=== PATIENT | male | born 1975 | race American Indian/Alaskan Native ===

== ENCOUNTER 2022-07-19 01:40 | Inpatient (IN) | payer SELFPAY ==
--- NOTE | 2022-07-19 02:18 | Emergency Department Report ---
ED General Adult HPI - General Chief complaint: Dyspnea/Respdistress Stated complaint: SOB/SWELLING Time Seen by Provider: 07/19/22 02:17 Source: patient, EMS ( EMS documentation not available at time of chart dictation ), RN notes reviewed Mode of arrival: Stretcher Limitations: Physical Limitation - History of Present Illness Initial comments: The patient was evaluated in the emergency department for symptoms described in the history of present illness. He/she was evaluated in the context of the global COVID-19 pandemic, which necessitated consideration that the patient might be at risk for infection with the virus that causes COVID-19. Instit utional protocols and algorithms that pertain to the evaluation of patients at risk for COVID-19 are in a state of rapid change based on information released by regulatory bodies including the CDC and federal and state organizations. These policies and algorithms were followed during the patient's care in the emergency department. Please note that these policies, procedures and recommendations changed on a rapid basis. This patient is a 46-year-old gentleman with a history of congestive heart failure, unknown ejection fraction, morbid obesity, possible hypertension, who reports a possible history of upper extremity DVT, and believes he is currently on Xarelto or Eliquis, who presents to the department today with complaint of painless lower extremity swelling, and difficulty walking. Patient denies significant chest pain. Patient denies hematemesis and bright red blood per rectum. The patient believes that he is COVID-19 vaccinated. He believes that he has actually lost a little bit of weight, but he also reports that he feels that his lower extremities are markedly swollen, and he has difficulty walking. He relocated to [place] from [place] in December. He reports that he gets his prescription sent to him from [facility], and is mostly compliant with his medications, although he reports intermittent compliance with diuretics and possible antihypertensives. He is fairly certain that he is compliant with his anticoagulants. His symptoms of lower extremity swelling him going on for the past 3 to 4 weeks, and are gradually getting worse -: week(s), month(s) Location: left, right, lower extremity Quality: aching Consistency: constant Improves with: rest Worsens with: movement - Related Data Allergies Allergy/AdvReac Type Severity Reaction Status Date / Time No Known Allergies Allergy Unverified 07/19/22 02:13 ED Review of Systems ROS: Stated complaint: SOB/SWELLING Other details as noted in HPI Constitutional: denies: fever Eyes: denies: eye discharge ENT: congestion Respiratory: shortness of breath Cardiovascular: edema. denies: chest pain Gastrointestinal: denies: nausea, vomiting, hematemesis, melena, hematochezia Genitourinary: denies: dysuria Musculoskeletal: arthralgia, myalgia Neurological: denies: weakness Psychiatric: anxiety Hematological/Lymphatic: denies: easy bleeding ED Past Medical Hx - Past Medical History Previous Medical History?: Yes Hx Hypertension: Yes Hx Congestive Heart Failure: Yes Additional medical history: Morbid Obesity - Surgical History Past Surgical History?: No - Social History Smoking Status: Never Smoker Substance Use Type: None ED Physical Exam - General Limitations: No Limitations General appearance: alert, anxious, obese - Head Head exam: Present: atraumatic, normocephalic - Eye Eye exam: Present: normal appearance, EOMI. Absent: nystagmus - ENT ENT exam: Present: normal exam, normal orophraynx, mucous membranes moist, normal external ear exam - Neck Neck exam: Present: normal inspection, full ROM. Absent: tenderness, meningismus - Respiratory Respiratory exam: Present: respiratory distress, decreased breath sounds. Absent: rhonchi, stridor - Cardiovascular Cardiovascular Exam: Present: normal rhythm, tachycardia. Absent: systolic murmur, diastolic murmur, rubs, gallop - GI/Abdominal GI/Abdominal exam: Present: soft, tenderness (Abdominal wall anasarca is estella reciated). Absent: distended, guarding, rebound, rigid - Rectal Rectal exam: Present: deferred - Extremities Exam Extremities exam: Present: full ROM (Bilateral upper extremities. Bilateral ankles), pedal edema (4+ edema noted in the bilateral lower extremities.), other (2+ pulses noted in the bilateral upper and lower extremities. There is no long bony tenderness. The muscular compartments are soft). Absent: normal inspection (Chronic appearing wound noted to the left anterior distal tibial region) - Back Exam Back exam: Present: normal inspection. Absent: tenderness, CVA tenderness (R), CVA tenderness (L), paraspinal tenderness, vertebral tenderness - Neurological Exam Neurological exam: Present: alert, oriented X3, other (There is no facial droop. The tongue is midline. EOMI. 5 out of 5 strength in 4 extremities. Sensation is intact to light touch in 4 extremities). Absent: motor sensory deficit - Psychiatric Psychiatric exam: Present: normal affect, normal mood - Skin Skin exam: Present: warm, dry, intact, normal color. Absent: rash ED Course Vital Signs 07/19/22 07/19/22 01:41 02:30 Temperature 98.8 F 97.5 F L Pulse Rate 120 H 124 H Respiratory 22 35 H Rate Blood Pressure 150/112 Blood Pressure 162/115 [Left] O2 Sat by Pulse 97 95 Oximetry - Reevaluation(s) Reevaluation #1: 07/19/22 04:31 Differential diagnosis, include but not limited to: Decompensated congestive heart failure, pulmonary hypertension, obstructive sleep apnea, volume overload, congestive hepatopathy, type II DC Assessment and plan: 46-year-old gentleman with physical and radiographic evidence of decompensated congestive heart failure, with probable congestive hepatopathy, and a type II troponin leak. X-ray of the chest suggest congestive heart failure. He is taking systemic anticoagulation. Lower extremity DVT study ordered. I do not have high suspicion for DVT or PE at this time. High-dose Lasix is ordered. Have recommended admission to the medical service for decompensated congestive heart failure. I will defer to the inpatient team to follow-up on lower extremity DVT study. I discussed this plan of care with the patient. He articulated understanding. All questions answered. 07/19/22 05:02 Dr Cheema to admit to [facility] ED Medical Decision Making - Lab Data Result diagrams: 07/19/22 02:51 07/19/22 02:51 Vital Signs 07/19/22 07/19/22 01:41 02:30 Temperature 98.8 F 97.5 F L Pulse Rate 120 H 124 H Respiratory 22 35 H Rate Blood Pressure 150/112 Blood Pressure 162/115 [Left] O2 Sat by Pulse 97 95 Oximetry Lab Results 07/19/22 07/19/22 07/19/22 Range/Units 02:51 02:51 02:51 WBC 6.8 (4.5-11.0) K/mm3 RBC 5.84 H (3.65-5.03) M/mm3 Hgb 14.3 (11.8-15.2) gm/dl Hct 45.5 (35.5-45.6) % MCV 78 L (84-94) fl MCH 25 L (28-32) pg MCHC 31 L (32-34) % RDW 18.2 H (13.2-15.2) % Plt Count 284 (140-440) K/mm3 Lymph % (Auto) 17.6 (13.4-35.0) % [place] % (Auto) 11.4 H (0.0-7.3) % Eos % (Auto) 0.3 (0.0-4.3) % Baso % (Auto) 0.8 (0.0-1.8) % Lymph # (Auto) 1.2 (1.2-5.4) K/mm3 [place] # (Auto) 0.8 (0.0-0.8) K/mm3 Eos # (Auto) 0.0 (0.0-0.4) K/mm3 Baso # (Auto) 0.1 (0.0-0.1) K/mm3 Seg Neutrophils % 69.9 (40.0-70.0) % Seg Neutrophils # 4.8 (1.8-7.7) K/mm3 PT 16.8 H (12.2-14.9) Sec. INR 1.22 H (0.87-1.13) APTT 28.6 (24.2-36.6) Sec. Sodium 136 L (137-145) mmol/L Potassium 5.1 H (3.6-5.0) mmol/L Chloride 104.7 (98-107) mmol/L Carbon Dioxide 14 L (22-30) mmol/L Anion Gap 22 mmol/L BUN 35 H (9-20) mg/dL Creatinine 1.4 H (0.8-1.3) mg/dL Estimated GFR > 60 ml/min BUN/Creatinine Ratio 25 % Glucose 180 H (75-100) mg/dL Calcium 9.4 (8.4-10.2) mg/dL Magnesium 2.00 (1.7-2.3) mg/dL Total Bilirubin 1.60 H (0.1-1.2) mg/dL AST 104 H (5-40) units/L ALT 147 H (7-56) units/L Alkaline Phosphatase 124 (35-129) units/L Troponin T 0.035 H (0.00-0.029) ng/mL NT-Pro-B Natriuret Pep (0-450) pg/mL Total Protein 7.7 (6.3-8.2) g/dL Albumin 4.1 (3.9-5) g/dL Albumin/Globulin Ratio 1.1 % Plasma/Serum Alcohol (0-0.07) % 07/19/22 07/19/22 Range/Units 02:51 02:51 WBC (4.5-11.0) K/mm3 RBC (3.65-5.03) M/mm3 Hgb (11.8-15.2) gm/dl Hct (35.5-45.6) % MCV (84-94) fl MCH (28-32) pg MCHC (32-34) % RDW (13.2-15.2) % Plt Count (140-440) K/mm3 Lymph % (Auto) (13.4-35.0) % [place] % (Auto) (0.0-7.3) % Eos % (Auto) (0.0-4.3) % Baso % (Auto) (0.0-1.8) % Lymph # (Auto) (1.2-5.4) K/mm3 [place] # (Auto) (0.0-0.8) K/mm3 Eos # (Auto) (0.0-0.4) K/mm3 Baso # (Auto) (0.0-0.1) K/mm3 Seg Neutrophils % (40.0-70.0) % Seg Neutrophils # (1.8-7.7) K/mm3 PT (12.2-14.9) Sec. INR (0.87-1.13) APTT (24.2-36.6) Sec. Sodium (137-145) mmol/L Potassium (3.6-5.0) mmol/L Chloride (98-107) mmol/L Carbon Dioxide (22-30) mmol/L Anion Gap mmol/L BUN (9-20) mg/dL Creatinine (0.8-1.3) mg/dL Estimated GFR ml/min BUN/Creatinine Ratio % Glucose (75-100) mg/dL Calcium (8.4-10.2) mg/dL Magnesium (1.7-2.3) mg/dL Total Bilirubin (0.1-1.2) mg/dL AST (5-40) units/L ALT (7-56) units/L Alkaline Phosphatase (35-129) units/L Troponin T (0.00-0.029) ng/mL NT-Pro-B Natriuret Pep 6793 H (0-450) pg/mL Total Protein (6.3-8.2) g/dL Albumin (3.9-5) g/dL Albumin/Globulin Ratio % Plasma/Serum Alcohol < 0.01 (0-0.07) % - EKG Data -: EKG Interpreted by Me Rate: tachycardia - EKG Data 07/19/22 04:28 The EKG is interpreted at 02: 27 Rate 127 bpm, with an extreme rightward axis deviation. Ectopic atrial rhythm noted, QTC 509 ms, and motion artifact. Poor R wave progression. Abnormal EKG. Not a STEMI. - Radiology Data Radiology results: pending, report reviewed, image reviewed Chest single view INDICATION: Dyspnea IMPRESSION: Cardiomegaly with perihilar and bibasilar opacities which could represent early interstitial edema versus intermixed subsegmental atelectasis. Low lung volumes. Signer Name: Vinicius Pryor MD Signed: 07/19/2022 1:42 AM Workstation Name: [id number] Critical Care Time: Yes Critical care time in (mins) excluding proc time.: 35 Critical care attestation.: If time is entered above; I have spent that time in minutes in the direct care of this critically ill patient, excluding procedure time. ED Disposition Clinical Impression: Acute congestive heart failure, Volume overload, Morbid obesity, Swelling of lower extremity Disposition: ADMITTED INPATIENT Is pt being admited?: Yes Does the pt Need Aspirin: No Condition: Good Referrals: CAMPBELL HARVEY MD [Primary Care Provider] - 3-5 Days
--- NOTE | 2022-07-19 02:46 | XRay Report ---
Chest single view INDICATION: Dyspnea IMPRESSION: Cardiomegaly with perihilar and bibasilar opacities which could represent early interstit ial edema versus intermixed subsegmental atelectasis. Low lung volumes. Signer Name: Vinicius Pryor MD Signed: 07/19/2022 2:42 AM Workstation Name: [email or web address]
[2022-07-19] MEDS ORDERED: FUROSEMIDE 40 MG/4 ML INJ IV ONE (02:58)
[2022-07-19 03:21] LABS: Basophils # (Auto) 0.1 K/mm3 (0.0-0.1); Basophils % (Auto) 0.8 % (0.0-1.8); Eosinophils % (Auto) 0.3 % (0.0-4.3); Hematocrit 45.5 % (35.5-45.6); Hemoglobin 14.3 gm/dl (11.8-15.2); Lymphocytes # (Auto) 1.2 K/mm3 (1.2-5.4); Lymphocytes % (Auto) 17.6 % (13.4-35.0); Mean Corpuscular HGB Conc 31 % (32-34); Mean Corpuscular Volume 78 fl (84-94); Monocytes # (Auto) 0.8 K/mm3 (0.0-0.8); Monocytes % (Auto) 11.4 % (0.0-7.3); Platelet Count 284 K/mm3 (140-440); Red Blood Count 5.84 M/mm3 (3.65-5.03); Red Cell Distribution Width 18.2 % (13.2-15.2)
[2022-07-19 03:30] LABS: INR 1.22 (0.87-1.13)
[2022-07-19 03:31] LABS: Partial Thromboplastin Time 28.6 Sec. (24.2-36.6)
[2022-07-19 03:44] LABS: Alanine Aminotransferase 147 units/L (7-56); Albumin 4.1 g/dL (3.9-5); BUN/Creatinine Ratio 25; Blood Urea Nitrogen 35 mg/dL (9-20); Calcium 9.4 mg/dL (8.4-10.2); Hemolysis Index 34
[2022-07-19] MEDS ORDERED: ACETAMINOPHEN 325 MG TAB PO PRN (05:03)
[2022-07-19] MEDS ORDERED: ONDANSETRON 4 MG/2 ML INJ IV PRN (05:03)
[2022-07-19] MEDS ORDERED: MORPHINE 4 MG/1 ML INJ IV PRN (05:03)
[2022-07-19] MEDS ORDERED: MORPHINE 2 MG/1 ML INJ IV PRN (05:03)
[2022-07-19 05:12] LABS: Chol/HDL Ratio 4.96 %; HDL Cholesterol 29 mg/dL (40-59); LDL Cholesterol,Direct 95 mg/dL (50-130)
--- NOTE | 2022-07-19 07:16 | Vascular Lab Report ---
DUPLEX DOPPLER LOWER EXTREMITY VEINS, BILATERAL INDICATION / CLINICAL INFORMATION: Lower extremity swelling. TECHNIQUE: Duplex doppler imaging was performed through the veins of both lower extremities using venous beto moni and other maneuvers. COMPARISON: None available. FINDINGS: Right Common Femoral vein: Negative. Right Femoral vein: Negative. Right Popliteal vein: Negative. Right Calf veins: Negative. Left Common Femoral vein: Negative. Left Femoral vein: Negative. Left Popliteal vein: Negative. Left Calf veins: Negative. Additional findings: None. IMPRESSION: 1. No sonographic evidence for DVT in either lower extremity. Signer Name: Vinicius Pryor MD Signed: 07/19/2022 7:12 AM Workstation Name: [email or web address]
--- NOTE | 2022-07-19 07:20 | History and Physical Report ---
History of Present Illness Date of examination: 07/19/22 Date of admission: 07/19/22 05:03 Chief complaint: 07/19/2022 History of present illness: Morbidly obese 46-year-old male patient with a history of congestive heart failure, unknown ejection fraction, morbid obesity, possible hypertension, who reports a possible history of upper extremity DVT, and believes he is currently on Xarelto or Eliquis, who presents to the department today with complaint of painless lower extremity swelling, and difficulty walking. Patient denies significant chest pain. Patient denies hematemesis and bright red blood per rectum. The patient believes that he is COVID-19 vaccinated. He believes that he has actually lost a little bit of weight, but he also reports that he feels that his lower extremities are markedly swollen, and he has difficulty walking. He relocated to [place] from [place] in December. He reports that he gets his prescription sent to him from [facility], and is mostly compliant with his medications, although he reports intermittent compliance with diuretics and possible antihypertensives. He is fairly certain that he is compliant with his anticoagulants. His symptoms of lower extremity swelling him going on for the past 3 to 4 weeks, and are gradually getting worse Past History Past Medical History: DVT, heart failure, hypertension. denies: diabetes Past Surgical History: No surgical history Social history: denies: smoking, alcohol abuse, IV drug use Family history: diabetes (Mother) Medications and Allergies Allergies Allergy/AdvReac Type Severity Reaction Status Date / Time No Known Allergies Allergy Verified 07/20/22 16:41 Home Medications Medication Instructions Recorded Confirmed Last Taken Type Furosemide [Lasix] 40 mg PO BID 07/20/22 07/20/22 Unknown History Losartan [Cozaar] 50 mg PO QDAY 07/20/22 07/20/22 Unknown History Potassium Chloride [K-Dur] 20 meq PO BID 07/20/22 07/20/22 Unknown History Simvastatin 20 mg PO QDAY 07/20/22 07/20/22 Unknown History Spironolactone [Aldactone] 50 mg PO QDAY 07/20/22 07/20/22 Unknown History Active Meds: Active Medications Acetaminophen (Acetaminophen 325 Mg Tab) 650 mg PO Q4H PRN PRN Reason: Pain MILD(1-3)/Fever >100.5/COLVIN Morphine Sulfate (Morphine 2 Mg/1 Ml Inj) 2 mg IV Q4H PRN PRN Reason: Pain, Moderate (4-6) Morphine Sulfate (Morphine 4 Mg/1 Ml Inj) 4 mg IV Q4H PRN PRN Reason: Pain , Severe (7-10) Ondansetron HCl (Ondansetron 4 Mg/2 Ml Inj) 4 mg IV Q8H PRN PRN Reason: Nausea And Vomiting Sodium Chloride (Sodium Chloride 0.9% 10 Ml Flush Syringe) 10 ml IV BID RUDDY Sodium Chloride (Sodium Chloride 0.9% 10 Ml Flush Syringe) 10 ml IV PRN PRN PRN Reason: LINE FLUSH Review of Systems Constitutional: weakness, no weight loss, no weight gain, no fever, no chills Ears, nose, mouth and throat: no nasal congestion, no nasal discharge Cardiovascular: shortness of breath, dyspnea on exertion, no chest pain Respiratory: shortness of breath, no cough Gastrointestinal: no abdominal pain, no nausea, no vomiting Genitourinary Male: no dysuria, no hematuria Integumentary: no rash, no lesions Neurological: no seizures, no syncope, no tremors Psychiatric: no anxiety, no anhedonia Exam - Constitutional Vitals: Temp Pulse Resp BP Pulse Ox 97.5 F L 126 H 32 H 147/96 95 07/19/22 02:30 07/19/22 06:36 07/19/22 06:36 07/19/22 06:36 07/19/22 06:36 General appearance: Present: mild distress, well-nourished, obese (Morbidly obese) - EENT Eyes: Present: PERRL, EOM intact - Neck Neck: Present: supple, normal ROM - Respiratory Respiratory effort: normal Respiratory: bilateral: diminished, rales, negative: rhonchi, wheezing - Cardiovascular Rhythm: regular Heart Sounds: Present: S1 & S2 - Extremities Extremities: no ischemia Extremity abnormal: edema, other (Chronic changes/some lymphedema) - Abdominal General gastrointestinal: Present: soft, non-tender, non-distended, normal bowel sounds - Integumentary Integumentary: Present: clear, warm - Musculoskeletal Musculoskeletal: strength equal bilaterally, generalized weakness - Psychiatric Psychiatric: appropriate mood/affect, cooperative - Neurologic Neurologic: moves all extremities HEART Score - HEART Score Troponin: Troponin T 0.035 ng/mL (0.00-0.029) H 07/19/22 02:51 Results - Labs CBC & Chem 7: 07/19/22 14:39 07/20/22 14:28 Labs: Abnormal lab results 07/19/22 07/19/22 07/19/22 Range/Units 02:51 02:51 02:51 RBC 5.84 H (3.65-5.03) M/mm3 MCV 78 L (84-94) fl MCH 25 L (28-32) pg MCHC 31 L (32-34) % RDW 18.2 H (13.2-15.2) % [place] % (Auto) 11.4 H (0.0-7.3) % PT 16.8 H (12.2-14.9) Sec. INR 1.22 H (0.87-1.13) Sodium 136 L (137-145) mmol/L Potassium 5.1 H (3.6-5.0) mmol/L Carbon Dioxide 14 L (22-30) mmol/L BUN 35 H (9-20) mg/dL Creatinine 1.4 H (0.8-1.3) mg/dL Glucose 180 H (75-100) mg/dL Total Bilirubin 1.60 H (0.1-1.2) mg/dL AST 104 H (5-40) units/L ALT 147 H (7-56) units/L Troponin T 0.035 H (0.00-0.029) ng/mL NT-Pro-B Natriuret Pep (0-450) pg/mL HDL Cholesterol 29 L (40-59) mg/dL TSH (0.270-4.200) mlU/mL 07/19/22 07/19/22 Range/Units 02:51 02:51 RBC (3.65-5.03) M/mm3 MCV (84-94) fl MCH (28-32) pg MCHC (32-34) % RDW (13.2-15.2) % [place] % (Auto) (0.0-7.3) % PT (12.2-14.9) Sec. INR (0.87-1.13) Sodium (137-145) mmol/L Potassium (3.6-5.0) mmol/L Carbon Dioxide (22-30) mmol/L BUN (9-20) mg/dL Creatinine (0.8-1.3) mg/dL Glucose (75-100) mg/dL Total Bilirubin (0.1-1.2) mg/dL AST (5-40) units/L ALT (7-56) units/L Troponin T (0.00-0.029) ng/mL NT-Pro-B Natriuret Pep 6793 H (0-450) pg/mL HDL Cholesterol (40-59) mg/dL TSH 5.070 H (0.270-4.200) mlU/mL Assessment and Plan - Patient Problems (1) Acute on chronic congestive heart failure Current Visit: Yes Status: Acute Qualifiers: Heart failure type: combined systolic and diastolic Qualified Code(s): I50.43 - Acute on chronic combined systolic (congestive) and diastolic (congestive) heart failure Plan to address problem: IV diuretics, beta-blockers, RAYMUNDO inhibitors, spironolactone Input output monitoring, fluid restriction Daily weights, echocardiogram for LV function ejection fraction Cardiology consult if needed (2) Bilateral leg edema Current Visit: Yes Status: Acute Plan to address problem: Chronic skin changes, wound care if needed Antifailure medications, elevate the limb (3) History of DVT (deep vein thrombosis) Current Visit: Yes Status: Acute Plan to address problem: Patient is on Xarelto, will resume Xarelto 20 mg daily Today's venous Doppler bilateral lower extremities negative for DVT (4) Dyslipidemia Current Visit: Yes Status: Acute Plan to address problem: Low-cholesterol diet, continue statin (5) Morbid obesity with BMI of 50.0-59.9, adult Current Visit: Yes Status: Acute Plan to address problem: Dietary modification, exercise as tolerated and weight reduction when you are medically stable Part of the weight could be due to fluid/CHF (6) DVT prophylaxis Current Visit: Yes Status: Acute Plan to address problem: Patient is already on Xarelto, supportive care (7) Full code status Current Visit: Yes Status: Acute (8) Advance care planning Current Visit: Yes Status: Acute (9) Preventative health care Current Visit: Yes Status: Acute Plan to address problem: Closely monitor the patient and adjust management as needed Plan of care reviewed with the patient and his nurse
--- NOTE | 2022-07-19 09:51 | Electrocardiograph Report ---
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
[2022-07-19] MEDS: METOPROLOL TARTRATE 25 MG TAB PO SCH ×2 (10:59→22:39)
[2022-07-19] MEDS: FAMOTIDINE 20 MG TAB PO SCH ×2 (10:59→22:34)
[2022-07-19] MEDS: SPIRONOLACTONE 50 MG TAB PO SCH (10:59)
[2022-07-19] MEDS: LOSARTAN 50 MG TAB PO SCH (10:59)
[2022-07-19 15:16] LABS: Hematocrit 45.5 % (35.5-45.6); Mean Corpuscular HGB Conc 31 % (32-34); Mean Corpuscular Volume 78 fl (84-94); Platelet Count 310 K/mm3 (140-440); Red Blood Count 5.87 M/mm3 (3.65-5.03); Red Cell Distribution Width 17.7 % (13.2-15.2)
[2022-07-19 15:24] LABS: INR 1.28 (0.87-1.13)
[2022-07-19 15:25] LABS: Partial Thromboplastin Time 34.3 Sec. (24.2-36.6)
[2022-07-19] MEDS: FUROSEMIDE 40 MG/4 ML INJ IV SCH (17:32)
[2022-07-19] MEDS: RIVAROXABAN 20 MG TAB PO SCH (17:32)
[2022-07-19] MEDS ORDERED: ENOXAPARIN 40 MG/0.4 ML INJ SUB-Q SCH (22:00)
[2022-07-20] MEDS: FUROSEMIDE 40 MG/4 ML INJ IV SCH ×2 (05:28→18:37)
--- NOTE | 2022-07-20 09:42 | Progress Note ---
Assessment and Plan Assessment and plan: Morbidly obese 46-year-old male patient with significant past medical history of congestive heart failure, DVT on anticoagulation, hypertension was admitted through emergency room with worsening shortness of breath generalized weakness and worsening leg edema. Initial work-up is consistent with acute exacerbation of chronic congestive heart failure with unknown ejection fraction. Assessment and plan: --Acute on chronic systolic congestive heart failure EF 10 to 15% IV diuretics, beta-blockers, RAYMUNDO inhibitors, spironolactone Input output monitoring, fluid restriction Daily weights, echo; EF 10 to 15% Cardiology consulted --Bilateral leg edema Chronic skin changes, wound care if needed Antifailure medications, elevate the limb --Very high D-dimers; due to DVT Unable to check CTA as patient is unable to lay flat - History of DVT (deep vein thrombosis) Patient is on Xarelto, will resume Xarelto 20 mg daily Today's venous Doppler bilateral lower extremities negative for DVT --Dyslipidemia Low-cholesterol diet, continue statin -- DVT prophylaxis Patient is already on Xarelto, supportive care -- Full code status --Morbid obesity with BMI of 50.0-59.9, adult Dietary modification, exercise as tolerated and weight reduction when you are medically stable Counseling done spent 20 minutes -- Advance care planning +30 Patient's condition discussed, patient diagnosed discussed, prognosis discussed, tests and reports discussed Consultants recommendations discussed, treatment plan discussed Answered all his questions, patient agreed and verbalized understanding --Preventative health care +30 Patient strongly advised to comply with medications, diet, follow-up visits Patient explained risks and consequences of noncompliance Verbalized understanding We will closely monitor the patient and adjust management as needed Plan of care reviewed with the patient and his nurse as well as the case management Disposition; follow clinically, discharge when medically stable History Interval history: I have seen and examined the patient at the bedside Patient's chart and medications reviewed Patient's feels slightly better still has some shortness of breath Denies chest pain or palpitations Vital signs reviewed Hospitalist Physical - Constitutional Vitals: Temp Pulse Resp BP Pulse Ox 97.4 F L 83 20 120/80 98 07/20/22 04:57 07/20/22 04:57 07/20/22 04:57 07/20/22 04:57 07/20/22 08:40 General appearance: Present: no acute distress, well-nourished, obese (Morbidly obese) - EENT Eyes: Present: PERRL, EOM intact - Neck Neck: Present: supple, normal ROM - Respiratory Respiratory effort: normal Respiratory: bilateral: diminished, rales, negative: rhonchi, wheezing - Cardiovascular Rhythm: regular Heart Sounds: Present: S1 & S2 - Extremities Extremities: no ischemia Extremity abnormal: edema, other (Chronic skin changes) - Abdominal General gastrointestinal: soft, non-tender, non-distended, normal bowel sounds - Integumentary Integumentary: Present: clear, warm - Psychiatric Psychiatric: appropriate mood/affect, cooperative - Neurologic Neurologic: no focal deficits, moves all extremities HEART Score - HEART Score Troponin: Troponin T 0.035 ng/mL (0.00-0.029) H 07/19/22 02:51 Results - Labs CBC & Chem 7: 07/19/22 14:39 07/20/22 14:28 Labs: Laboratory Last Values WBC 6.7 K/mm3 (4.5-11.0) 07/19/22 14:39 RBC 5.87 M/mm3 (3.65-5.03) H 07/19/22 14:39 Hgb 14.0 gm/dl (11.8-15.2) 07/19/22 14:39 Hct 45.5 % (35.5-45.6) 07/19/22 14:39 MCV 78 fl (84-94) L 07/19/22 14:39 MCH 24 pg (28-32) L 07/19/22 14:39 MCHC 31 % (32-34) L 07/19/22 14:39 RDW 17.7 % (13.2-15.2) H 07/19/22 14:39 Plt Count 310 K/mm3 (140-440) 07/19/22 14:39 Lymph % (Auto) 17.6 % (13.4-35.0) 07/19/22 02:51 [place] % (Auto) 11.4 % (0.0-7.3) H 07/19/22 02:51 Eos % (Auto) 0.3 % (0.0-4.3) 07/19/22 02:51 Baso % (Auto) 0.8 % (0.0-1.8) 07/19/22 02:51 Lymph # (Auto) 1.2 K/mm3 (1.2-5.4) 07/19/22 02:51 [place] # (Auto) 0.8 K/mm3 (0.0-0.8) 07/19/22 02:51 Eos # (Auto) 0.0 K/mm3 (0.0-0.4) 07/19/22 02:51 Baso # (Auto) 0.1 K/mm3 (0.0-0.1) 07/19/22 02:51 Seg Neutrophils % 69.9 % (40.0-70.0) 07/19/22 02:51 Seg Neutrophils # 4.8 K/mm3 (1.8-7.7) 07/19/22 02:51 PT 17.5 Sec. (12.2-14.9) H 07/19/22 14:39 INR 1.28 (0.87-1.13) H 07/19/22 14:39 APTT 34.3 Sec. (24.2-36.6) 07/19/22 14:39 D-Dimer 5225.58 ng/mlDDU (0-234) H 07/19/22 08:42 Sodium 136 mmol/L (137-145) L 07/19/22 02:51 Potassium 5.1 mmol/L (3.6-5.0) H 07/19/22 02:51 Chloride 104.7 mmol/L (98-107) 07/19/22 02:51 Carbon Dioxide 14 mmol/L (22-30) L 07/19/22 02:51 Anion Gap 22 mmol/L 07/19/22 02:51 BUN 35 mg/dL (9-20) H 07/19/22 02:51 Creatinine 1.7 mg/dL (0.8-1.3) H 07/19/22 14:39 Estimated GFR 53 ml/min 07/19/22 14:39 BUN/Creatinine Ratio 25 % 07/19/22 02:51 Glucose 180 mg/dL (75-100) H 07/19/22 02:51 Calcium 9.4 mg/dL (8.4-10.2) 07/19/22 02:51 Magnesium 2.00 mg/dL (1.7-2.3) 07/19/22 02:51 Total Bilirubin 1.60 mg/dL (0.1-1.2) H 07/19/22 02:51 AST 104 units/L (5-40) H 07/19/22 02:51 ALT 147 units/L (7-56) H 07/19/22 02:51 Alkaline Phosphatase 124 units/L (35-129) 07/19/22 02:51 Troponin T 0.035 ng/mL (0.00-0.029) H 07/19/22 02:51 NT-Pro-B Natriuret Pep 6793 pg/mL (0-450) H 07/19/22 02:51 Total Protein 7.7 g/dL (6.3-8.2) 07/19/22 02:51 Albumin 4.1 g/dL (3.9-5) 07/19/22 02:51 Albumin/Globulin Ratio 1.1 % 07/19/22 02:51 Triglycerides 92 mg/dL (2-149) 07/19/22 02:51 Cholesterol 144 mg/dL (50-199) 07/19/22 02:51 LDL Cholesterol Direct 95 mg/dL (50-130) 07/19/22 02:51 HDL Cholesterol 29 mg/dL (40-59) L 07/19/22 02:51 Cholesterol/HDL Ratio 4.96 % 07/19/22 02:51 TSH 5.070 mlU/mL (0.270-4.200) H 07/19/22 02:51 Plasma/Serum Alcohol < 0.01 % (0-0.07) 07/19/22 02:51 An/IV: Voiding Method Urinal Active Medications - Current Medications Current Medications: Generic Name Dose Route Start Last Admin Trade Name Freq PRN Reason Stop Dose Admin Acetaminophen 650 mg 07/19/22 05:03 Acetaminophen 325 Mg Tab PO Q4H PRN Pain MILD(1-3)/Fever >100.5/COLVIN Atorvastatin Calcium 40 mg 07/19/22 22:00 07/19/22 22:34 Atorvastatin 40 Mg Tab PO 40 mg QHS RUDDY Administration Famotidine 20 mg 07/19/22 10:00 07/19/22 22:34 Famotidine 20 Mg Tab PO 20 mg BID RUDDY Administration Furosemide 40 mg 07/19/22 18:00 07/20/22 05:28 Furosemide 40 Mg/4 Ml Inj IV 40 mg 0600,1800 RUDDY Administration Losartan Potassium 50 mg 07/19/22 10:00 07/19/22 10:59 Losartan 50 Mg Tab PO 50 mg QDAY RUDDY Administration Metoprolol Tartrate 12.5 mg 07/19/22 10:00 07/19/22 22:39 Metoprolol Tartrate 25 Mg Tab PO 12.5 mg BID RUDDY Administration Morphine Sulfate 2 mg 07/19/22 05:03 Morphine 2 Mg/1 Ml Inj IV Q4H PRN Pain, Moderate (4-6) Morphine Sulfate 4 mg 07/19/22 05:03 Morphine 4 Mg/1 Ml Inj IV Q4H PRN Pain , Severe (7-10) Ondansetron HCl 4 mg 07/19/22 05:03 Ondansetron 4 Mg/2 Ml Inj IV Q8H PRN Nausea And Vomiting Rivaroxaban 20 mg 07/19/22 17:00 07/19/22 17:32 Rivaroxaban 20 Mg Tab PO 20 mg QPMDIAB RUDDY Administration Protocol Sodium Chloride 10 ml 07/19/22 10:00 07/20/22 00:52 Sodium Chloride 0.9% 10 Ml Flush Syringe IV 10 ml BID RUDDY Administration Sodium Chloride 10 ml 07/19/22 05:03 Sodium Chloride 0.9% 10 Ml Flush Syringe IV PRN PRN LINE FLUSH Spironolactone 50 mg 07/19/22 10:00 07/19/22 10:59 Spironolactone 50 Mg Tab PO 50 mg QDAY RUDDY Administration
--- NOTE | 2022-07-20 10:00 | Electrocardiograph Report ---
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
[2022-07-20] MEDS: SPIRONOLACTONE 50 MG TAB PO SCH (10:47)
[2022-07-20] MEDS: METOPROLOL TARTRATE 25 MG TAB PO SCH (10:47)
[2022-07-20] MEDS: FAMOTIDINE 20 MG TAB PO SCH ×2 (10:48→21:32)
[2022-07-20] MEDS: LOSARTAN 50 MG TAB PO SCH (10:48)
--- NOTE | 2022-07-20 14:04 | Consultation ---
History of Present Illness Consult date: 07/20/22 Consult reason: congestive heart failure History of present illness: The patient is a 46-year-old man with morbid obesity, who presented to the emergency room with increasing shortness of breath, fatigue and lower extremity edema. He was found to have decompensated heart failure and is admitted on diuretic therapy. An echocardiogram done showed severe four-chamber dilated cardiomyopathy, with end-stage left ventricular systolic dysfunction, ejection fraction less than 20%. [facility] failure decompensation. The patient is visiting the area from [place]. He has been here for about 6 months and plans to return back home soon. 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 He is on medical therapy which he states that he has been compliant with, but over the past months while in [place] he has been poorly compliant with low-salt diet. He understands that his current decompensation is likely due to dietary salt indiscretion. He is unable to recall any specific cardiac work-up while in [place], but tells me that a cardiac defibrillator has been discussed in the past but it was felt that his heart function at the time was above the threshold to need primary ICD implant. Work-up on this presentation, ECG was sinus tachycardia with first-degree AV block, right axis deviation, possible old lateral myocardial infarct, nonspecific intraventricular conduction delay. Chest x-ray revealed mild cardiomegaly with very mild interstitial changes. Past History Past Medical History: DVT, heart failure, hypertension, other (Morbidly obese). denies: diabetes Past Surgical History: No surgical history Social history: denies: smoking, alcohol abuse, IV drug use Family history: diabetes (Mother) Medications and Allergies Allergies Allergy/AdvReac Type Severity Reaction Status Date / Time No Known Allergies Allergy Verified 07/19/22 05:07 Home Medications Medication Instructions Recorded Confirmed Last Taken Type Cozaar 50 mg PO BID 07/19/22 07/19/22 07/17/22 History K-Dur 40 meq PO DAILY 07/19/22 07/19/22 07/17/22 History Lasix 40 mg PO BID 07/19/22 07/19/22 07/17/22 History Simvastatin 20 mg PO HS 07/19/22 07/19/22 07/18/22 History Spironolactone 50 mg PO DAILY 07/19/22 07/19/22 07/17/22 History Active Meds: Active Medications Acetaminophen (Acetaminophen 325 Mg Tab) 650 mg PO Q4H PRN PRN Reason: Pain MILD(1-3)/Fever >100.5/COLVIN Atorvastatin Calcium (Atorvastatin 40 Mg Tab) 40 mg PO QHS [facility] Last Admin: 07/19/22 22:34 Dose: 40 mg Carvedilol (Carvedilol 6.25 Mg Tab) 6.25 mg PO BID [facility] Famotidine (Famotidine 20 Mg Tab) 20 mg PO BID [facility] Last Admin: 07/20/22 10:48 Dose: 20 mg Furosemide (Furosemide 40 Mg/4 Ml Inj) 40 mg IV 0600,1800 [facility] Last Admin: 07/20/22 05:28 Dose: 40 mg Milrinone Lactate/Dextrose (Milrinone-D5w 20 Mg/100 Ml) 20 mg in 100 mls @ 19.136 mls/hr IV DIRECT RUDDY; Protocol Stop: 07/23/22 13:59 Losartan Potassium (Losartan 50 Mg Tab) 50 mg PO QDAY [facility] Last Admin: 07/20/22 10:48 Dose: 50 mg Morphine Sulfate (Morphine 2 Mg/1 Ml Inj) 2 mg IV Q4H PRN PRN Reason: Pain, Moderate (4-6) Morphine Sulfate (Morphine 4 Mg/1 Ml Inj) 4 mg IV Q4H PRN PRN Reason: Pain , Severe (7-10) Ondansetron HCl (Ondansetron 4 Mg/2 Ml Inj) 4 mg IV Q8H PRN PRN Reason: Nausea And Vomiting Rivaroxaban (Rivaroxaban 20 Mg Tab) 20 mg PO QPMDIAB [facility]; Protocol Last Admin: 07/19/22 17:32 Dose: 20 mg Sodium Chloride (Sodium Chloride 0.9% 10 Ml Flush Syringe) 10 ml IV BID [facility] Last Admin: 07/20/22 10:48 Dose: 10 ml Sodium Chloride (Sodium Chloride 0.9% 10 Ml Flush Syringe) 10 ml IV PRN PRN PRN Reason: LINE FLUSH Spironolactone (Spironolactone 50 Mg Tab) 50 mg PO QDAY [facility] Last Admin: 07/20/22 10:47 Dose: 50 mg Review of Systems Cardiovascular: orthopnea, edema, shortness of breath, no chest pain, no palpitations, no rapid/irregular heart beat, no syncope, no lightheadedness Physical Examination Vital Signs Temp Pulse Resp BP Pulse Ox 98.8 F 120 H 22 150/112 97 07/19/22 01:41 07/19/22 01:41 07/19/22 01:41 07/19/22 01:41 07/19/22 01:41 General appearance: no acute distress, obese HEENT: Positive: PERRL Neck: Positive: neck supple Cardiac: Positive: Reg Rate and Rhythm Lungs: Positive: Decreased Breath Sounds Neuro: Positive: Grossly Intact Male genitourinary: Positive: deferred Skin: Positive: Clear Extremities: Present: +2 Edema Results 07/19/22 14:39 07/19/22 14:39 Coagulation 07/19/22 Range/Units 14:39 PT 17.5 H (12.2-14.9) Sec. INR 1.28 H (0.87-1.13) APTT 34.3 (24.2-36.6) Sec. CBC 07/19/22 Range/Units 14:39 WBC 6.7 (4.5-11.0) K/mm3 RBC 5.87 H (3.65-5.03) M/mm3 Hgb 14.0 (11.8-15.2) gm/dl Hct 45.5 (35.5-45.6) % Plt Count 310 (140-440) K/mm3 Comprehensive Metabolic Panel 07/19/22 Range/Units 14:39 Creatinine 1.7 H (0.8-1.3) mg/dL EKG interpretations - Telemetry EKG Rhythm: Sinus Tachycardia (With first-degree AV block, right axis deviation, possible old lateral infarct, nonspecific intraventricular conduction delay) Assessment and Plan - Patient Problems (1) Acute on chronic systolic heart failure Current Visit: Yes Status: Acute Plan to address problem: Patient with a long history of systolic left ventricular failure, presents with acute on chronic CHF exacerbation, likely due to dietary salt indiscretion. In addition to optimal intravenous diuretics, will add a trial of intravenous milrinone infusion. On discharge, we will recommend LifeVest monitoring as a bridge to eventual ICD when he follows with his primary doctors in [place].
[2022-07-20 15:24] LABS: Albumin 3.8 g/dL (3.9-5); Bilirubin,Direct 0.8 mg/dL (0-0.2)
[2022-07-20] MEDS: carvediloL 6.25 MG TAB PO SCH ×2 (15:48→21:32)
[2022-07-20] MEDS: RIVAROXABAN 20 MG TAB PO SCH (18:37)
[2022-07-20 21:39] LABS: Hepatitis B Surface Antigen Non-Reactive (Negative); Hepatitis C Virus Antibody Non-Reactive (NonReactive)
[2022-07-21] MEDS: FUROSEMIDE 40 MG/4 ML INJ IV SCH ×2 (05:26→17:05)
[2022-07-21] MEDS: carvediloL 6.25 MG TAB PO SCH ×2 (09:39→21:21)
[2022-07-21] MEDS: LOSARTAN 50 MG TAB PO SCH (09:39)
[2022-07-21] MEDS: FAMOTIDINE 20 MG TAB PO SCH ×2 (09:39→21:21)
[2022-07-21] MEDS: SPIRONOLACTONE 50 MG TAB PO SCH (09:39)
[2022-07-21] MEDS: MILRINONE-D5W 20 MG/100 ML 20 MG/100 ML BAG IV SCH ×3 (10:56→23:33)
--- NOTE | 2022-07-21 12:19 | Progress Note ---
Assessment and Plan - Patient Problems (1) Acute on chronic systolic heart failure Current Visit: Yes Status: Acute Plan to address problem: Patient with a long history of systolic left ventricular failure, presents with acute on chronic CHF exacerbation, likely due to dietary salt indiscretion. In addition to optimal intravenous diuretics, will add a trial of intravenous milrinone infusion. We have ordered evaluation for LifeVest monitoring on discharge, as a bridge to eventual ICD when he follows with his primary doctors in [place]. Subjective Date of service: 07/21/22 Principal diagnosis: Acute on chronic systolic heart failure Interval history: Patient is comfortable, no acute distress. He has not been started on intravenous milrinone as ordered yesterday. Objective Vital Signs Temp Pulse Resp BP BP Pulse Ox 07/21/22 11:46 21 95 07/21/22 09:45 98 H 107/84 96 07/21/22 07:45 98.1 F 95 H 18 101/76 94 07/21/22 03:36 97.2 F L 92 H 20 102/72 94 07/21/22 00:12 18 94 07/20/22 23:06 102 H 16 116/82 96 07/20/22 22:00 102 H 07/20/22 21:45 117 H 07/20/22 19:12 97.2 F L 104 H 18 119/93 94 07/20/22 18:40 123/83 - Physical Examination General: No Apparent Distress HEENT: Positive: PERRL Neck: Positive: neck supple Cardiac: Positive: Reg Rate and Rhythm Lungs: Positive: Decreased Breath Sounds Neuro: Positive: Grossly Intact Abdomen: Positive: Soft Skin: Positive: Clear Extremities: Present: +2 Edema - Labs and Meds Cardiac Enzymes 07/20/22 Range/Units 14:28 AST 215 H (5-40) units/L Comprehensive Metabolic Panel 07/20/22 07/20/22 Range/Units 14:28 14:28 Potassium 4.6 (3.6-5.0) mmol/L Direct Bilirubin 0.8 H (0-0.2) mg/dL Indirect Bilirubin 0.9 mg/dL AST 215 H (5-40) units/L ALT 307 H (7-56) units/L Alkaline Phosphatase 126 (35-129) units/L Total Protein 7.1 (6.3-8.2) g/dL Albumin 3.8 L (3.9-5) g/dL
--- NOTE | 2022-07-21 12:46 | Progress Note ---
Assessment and Plan Assessment and plan: Morbidly obese 46-year-old male patient with significant past medical history of congestive heart failure, DVT on anticoagulation, hypertension was admitted through emergency room with worsening shortness of breath generalized weakness and worsening leg edema. Initial work-up is consistent with acute exacerbation of chronic congestive heart failure with unknown ejection fraction. #Acute on chronic systolic congestive heart failure EF 10 to 15% #Bilateral leg edema -continue coreg, spironolactone, and losartan; lasix 40mg IV BID -Daily weights, Input output monitoring, fluid restriction -milrinone drip started, will continue for 72hrs -Lifevest prior to discharge, patient to follow up with outside [employer] for ICD evaluation -Cardiology following, assistance appreciated #History of DVT (deep vein thrombosis) #Elevated D-dimer -patient with history of DVT and takes Xarelto outpatient -continue Xarelto 20mg qday -venous doppler BLE negative for DVT; CTA not performed due to inability to lie flat #Hyperlipidemia -continue statin #Morbid obesity #Weight loss counseling #Exercise counseling - BMI of 52.3 - Counseled patient on the importance of weight loss, incorporating exercise, and dietary changes (lean meats, fresh fruits and vegetables, and water intake). Patient expresses understanding. - Time: +15 min #Advanced care planning -Disease education conducted, care plan discussed, diagnoses discussed, prognosis discussed, and patient acknowledges understanding with care plan -Time: +30 min History Interval history: Events overnight. Patient reports significant improvement in his shortness of breath and bilateral lower extremity edema. He reports compliance with GDMT and, but has eaten salty food since living in [place]. He denies shortness of breath and chest pain at this time. Hospitalist Physical - Physical exam Narrative exam: GENERAL: Obese male. In no acute distress. HEENT: Normocephalic. Atraumatic. NECK: Supple. CHEST/LUNGS: CTAB on room air HEART/CARDIOVASCULAR: RRR. No murmur, rubs or gallops appreciated. ABDOMEN: +BS. NT/ND. SKIN: hyperpigmented and thickened skin on BLE. NEURO: No focal motor deficit. Follows all commands. MUSCULOSKELETAL: No joint effusion EXTREMITIES: No cyanosis or clubbing. 2+ BLE edema. LLE bandage draining clear fluid. PSYCH: Cooperative. - Constitutional Vitals: Temp Pulse Resp BP Pulse Ox 98.1 F 98 H 21 107/84 95 07/21/22 07:45 07/21/22 09:45 07/21/22 11:46 07/21/22 09:45 07/21/22 11:46 General appearance: Present: mild distress, well-nourished, obese (Morbidly obese) HEART Score - HEART Score Troponin: Troponin T 0.035 ng/mL (0.00-0.029) H 07/19/22 02:51 Results - Labs CBC & Chem 7: 07/19/22 14:39 07/20/22 14:28 Labs: Laboratory Last Values WBC 6.7 K/mm3 (4.5-11.0) 07/19/22 14:39 RBC 5.87 M/mm3 (3.65-5.03) H 07/19/22 14:39 Hgb 14.0 gm/dl (11.8-15.2) 07/19/22 14:39 Hct 45.5 % (35.5-45.6) 07/19/22 14:39 MCV 78 fl (84-94) L 07/19/22 14:39 MCH 24 pg (28-32) L 07/19/22 14:39 MCHC 31 % (32-34) L 07/19/22 14:39 RDW 17.7 % (13.2-15.2) H 07/19/22 14:39 Plt Count 310 K/mm3 (140-440) 07/19/22 14:39 Lymph % (Auto) 17.6 % (13.4-35.0) 07/19/22 02:51 [place] % (Auto) 11.4 % (0.0-7.3) H 07/19/22 02:51 Eos % (Auto) 0.3 % (0.0-4.3) 07/19/22 02:51 Baso % (Auto) 0.8 % (0.0-1.8) 07/19/22 02:51 Lymph # (Auto) 1.2 K/mm3 (1.2-5.4) 07/19/22 02:51 [place] # (Auto) 0.8 K/mm3 (0.0-0.8) 07/19/22 02:51 Eos # (Auto) 0.0 K/mm3 (0.0-0.4) 07/19/22 02:51 Baso # (Auto) 0.1 K/mm3 (0.0-0.1) 07/19/22 02:51 Seg Neutrophils % 69.9 % (40.0-70.0) 07/19/22 02:51 Seg Neutrophils # 4.8 K/mm3 (1.8-7.7) 07/19/22 02:51 PT 17.5 Sec. (12.2-14.9) H 07/19/22 14:39 INR 1.28 (0.87-1.13) H 07/19/22 14:39 APTT 34.3 Sec. (24.2-36.6) 07/19/22 14:39 D-Dimer 5225.58 ng/mlDDU (0-234) H 07/19/22 08:42 Sodium 136 mmol/L (137-145) L 07/19/22 02:51 Potassium 4.6 mmol/L (3.6-5.0) 07/20/22 14:28 Chloride 104.7 mmol/L (98-107) 07/19/22 02:51 Carbon Dioxide 14 mmol/L (22-30) L 07/19/22 02:51 Anion Gap 22 mmol/L 07/19/22 02:51 BUN 35 mg/dL (9-20) H 07/19/22 02:51 Creatinine 1.7 mg/dL (0.8-1.3) H 07/19/22 14:39 Estimated GFR 53 ml/min 07/19/22 14:39 BUN/Creatinine Ratio 25 % 07/19/22 02:51 Glucose 180 mg/dL (75-100) H 07/19/22 02:51 Calcium 9.4 mg/dL (8.4-10.2) 07/19/22 02:51 Magnesium 2.00 mg/dL (1.7-2.3) 07/19/22 02:51 Total Bilirubin 1.70 mg/dL (0.1-1.2) H 07/20/22 14:28 Direct Bilirubin 0.8 mg/dL (0-0.2) H 07/20/22 14:28 Indirect Bilirubin 0.9 mg/dL 07/20/22 14:28 AST 215 units/L (5-40) H 07/20/22 14:28 ALT 307 units/L (7-56) H 07/20/22 14:28 Alkaline Phosphatase 126 units/L (35-129) 07/20/22 14:28 Troponin T 0.035 ng/mL (0.00-0.029) H 07/19/22 02:51 NT-Pro-B Natriuret Pep 6793 pg/mL (0-450) H 07/19/22 02:51 Total Protein 7.1 g/dL (6.3-8.2) 07/20/22 14:28 Albumin 3.8 g/dL (3.9-5) L 07/20/22 14:28 Albumin/Globulin Ratio 1.2 % 07/20/22 14:28 Triglycerides 92 mg/dL (2-149) 07/19/22 02:51 Cholesterol 144 mg/dL (50-199) 07/19/22 02:51 LDL Cholesterol Direct 95 mg/dL (50-130) 07/19/22 02:51 HDL Cholesterol 29 mg/dL (40-59) L 07/19/22 02:51 Cholesterol/HDL Ratio 4.96 % 07/19/22 02:51 TSH 5.070 mlU/mL (0.270-4.200) H 07/19/22 02:51 Plasma/Serum Alcohol < 0.01 % (0-0.07) 07/19/22 02:51 Hepatitis A IgM Ab Non-reactive (NonReactive) 07/20/22 19:03 Hep Bs Antigen Non-reactive (Negative) 07/20/22 19:03 Hep B Core IgM Ab Non-reactive (NonReactive) 07/20/22 19:03 Hepatitis C Antibody Non-reactive (NonReactive) 07/20/22 19:03 An/IV: Voiding Method Urinal Active Medications - Current Medications Current Medications: Generic Name Dose Route Start Last Admin Trade Name Freq PRN Reason Stop Dose Admin Acetaminophen 650 mg 07/19/22 05:03 Acetaminophen 325 Mg Tab PO Q4H PRN Pain MILD(1-3)/Fever >100.5/COLVIN Atorvastatin Calcium 40 mg 07/19/22 22:00 07/20/22 21:32 Atorvastatin 40 Mg Tab PO 40 mg QHS RUDDY Administration Carvedilol 6.25 mg 07/20/22 14:00 07/21/22 09:39 Carvedilol 6.25 Mg Tab PO 6.25 mg BID RUDDY Administration Famotidine 20 mg 07/19/22 10:00 07/21/22 09:39 Famotidine 20 Mg Tab PO 20 mg BID RUDDY Administration Furosemide 40 mg 07/19/22 18:00 07/21/22 05:26 Furosemide 40 Mg/4 Ml Inj IV 40 mg 0600,1800 RUDDY Administration Milrinone Lactate/Dextrose 20 mg in 100 mls @ 19.136 mls/hr 07/20/22 14:00 07/21/22 10:56 Milrinone-D5w 20 Mg/100 Ml IV 07/23/22 13:59 0.375 mcg/kg/min DIRECT RUDDY 19.136 mls/hr Administration Protocol 0.375 MCG/KG/MIN Losartan Potassium 50 mg 07/19/22 10:00 07/21/22 09:39 Losartan 50 Mg Tab PO 50 mg QDAY RUDDY Administration Morphine Sulfate 2 mg 07/19/22 05:03 Morphine 2 Mg/1 Ml Inj IV Q4H PRN Pain, Moderate (4-6) Morphine Sulfate 4 mg 07/19/22 05:03 Morphine 4 Mg/1 Ml Inj IV Q4H PRN Pain , Severe (7-10) Ondansetron HCl 4 mg 07/19/22 05:03 Ondansetron 4 Mg/2 Ml Inj IV Q8H PRN Nausea And Vomiting Rivaroxaban 20 mg 07/19/22 17:00 07/20/22 18:37 Rivaroxaban 20 Mg Tab PO 20 mg QPMDIAB RUDDY Administration Protocol Sodium Chloride 10 ml 07/19/22 10:00 07/21/22 09:42 Sodium Chloride 0.9% 10 Ml Flush Syringe IV 10 ml BID RUDDY Administration Sodium Chloride 10 ml 07/19/22 05:03 Sodium Chloride 0.9% 10 Ml Flush Syringe IV PRN PRN LINE FLUSH Spironolactone 50 mg 07/19/22 10:00 07/21/22 09:39 Spironolactone 50 Mg Tab PO 50 mg QDAY RUDDY Administration
[2022-07-21] MEDS: RIVAROXABAN 20 MG TAB PO SCH (16:23)
[2022-07-21 23:36] LABS: Hematocrit 44.1 % (35.5-45.6); Hemoglobin 13.9 gm/dl (11.8-15.2); Mean Corpuscular HGB Conc 31 % (32-34); Mean Corpuscular Volume 78 fl (84-94); Platelet Count 314 K/mm3 (140-440); Red Blood Count 5.69 M/mm3 (3.65-5.03); Red Cell Distribution Width 18.1 % (13.2-15.2)
[2022-07-22 00:10] LABS: Alanine Aminotransferase 183 units/L (7-56); Albumin 3.5 g/dL (3.9-5); BUN/Creatinine Ratio 28; Blood Urea Nitrogen 42 mg/dL (9-20); Calcium 8.7 mg/dL (8.4-10.2); Hemolysis Index 12
[2022-07-22] MEDS: FUROSEMIDE 40 MG/4 ML INJ IV SCH ×2 (05:22→17:08)
[2022-07-22] MEDS: MILRINONE-D5W 20 MG/100 ML 20 MG/100 ML BAG IV SCH ×3 (05:27→17:12)
[2022-07-22] MEDS: SPIRONOLACTONE 50 MG TAB PO SCH (09:20)
[2022-07-22] MEDS: LOSARTAN 50 MG TAB PO SCH (09:20)
[2022-07-22] MEDS: carvediloL 6.25 MG TAB PO SCH (09:20)
[2022-07-22] MEDS: FAMOTIDINE 20 MG TAB PO SCH ×2 (09:21→21:03)
[2022-07-22] MEDS ORDERED: carvediloL 6.25 MG TAB PO SCH (10:00)
[2022-07-22] MEDS: carvediloL 12.5 MG TAB PO SCH ×2 (10:28→21:04)
--- NOTE | 2022-07-22 12:33 | Progress Note ---
Assessment and Plan - Patient Problems (1) Acute on chronic systolic heart failure Current Visit: Yes Status: Acute Plan to address problem: Patient with a long history of systolic left ventricular failure, presents with acute on chronic CHF exacerbation, likely due to dietary salt indiscretion. Ongoing treatment with intravenous diuretics, intravenous milrinone and other oral guideline directed medical therapy. Patient will be stable for cardiac discharge after another 24 to 48 hours of milrinone, LifeVest monitoring on discharge for further outpatient follow-up with his doctors in [place]. Subjective Date of service: 07/22/22 Principal diagnosis: Acute on chronic systolic heart failure Interval history: Patient is comfortable, no acute distress. He has is now being started on intravenous milrinone. Edema is resolving. Objective Vital Signs Temp Pulse Resp BP BP Pulse Ox 07/22/22 12:24 97.7 F 71 18 104/62 95 07/22/22 10:28 104 H 119/74 07/22/22 09:20 104 H 119/74 07/22/22 03:29 97.4 F L 104 H 20 119/74 92 07/21/22 23:09 97.2 F L 109 H 20 118/72 94 07/21/22 22:00 109 H 07/21/22 20:47 18 94 07/21/22 19:44 97.3 F L 104 H 18 128/82 87 07/21/22 15:48 98.1 F 98 H 17 108/60 95 07/21/22 14:00 101 H - Physical Examination General: No Apparent Distress HEENT: Positive: PERRL Neck: Positive: neck supple Cardiac: Positive: Reg Rate and Rhythm Lungs: Positive: Decreased Breath Sounds Neuro: Positive: Grossly Intact Abdomen: Positive: Soft Skin: Positive: Clear Extremities: Present: +1 Edema - Labs and Meds Cardiac Enzymes 07/21/22 Range/Units 22:58 AST 69 H (5-40) units/L CBC 07/21/22 Range/Units 22:58 WBC 7.2 (4.5-11.0) K/mm3 RBC 5.69 H (3.65-5.03) M/mm3 Hgb 13.9 (11.8-15.2) gm/dl Hct 44.1 (35.5-45.6) % Plt Count 314 (140-440) K/mm3 Comprehensive Metabolic Panel 08/30/22 Range/Units 22:58 Sodium 140 (137-145) mmol/L Potassium 5.0 (3.6-5.0) mmol/L Chloride 100.9 (98-107) mmol/L Carbon Dioxide 26 D (22-30) mmol/L BUN 42 H (9-20) mg/dL Creatinine 1.5 H (0.8-1.3) mg/dL Glucose 196 H (75-100) mg/dL Calcium 8.7 (8.4-10.2) mg/dL AST 69 H (5-40) units/L ALT 183 H (7-56) units/L Alkaline Phosphatase 115 (35-129) units/L Total Protein 6.9 (6.3-8.2) g/dL Albumin 3.5 L (3.9-5) g/dL
--- NOTE | 2022-07-22 14:07 | Progress Note ---
Assessment and Plan Assessment and plan: Morbidly obese 46-year-old male patient with significant past medical history of congestive heart failure, DVT on anticoagulation, hypertension was admitted through emergency room with worsening shortness of breath generalized weakness and worsening leg edema. Initial work-up is consistent with acute exacerbation of chronic congestive heart failure with unknown ejection fraction. #Acute on chronic systolic congestive heart failure EF 10 to 15% #Bilateral leg edema-improving -continue coreg, spironolactone, and losartan; lasix 40mg IV BID -Daily weights, Input output monitoring, fluid restriction -continue milrinone drip for 72hrs -Lifevest prior to discharge, patient to follow up with outside Gas Torch Solderer for ICD evaluation -Cardiology following, assistance appreciated #History of DVT (deep vein thrombosis) #Elevated D-dimer -patient with history of DVT and takes Xarelto outpatient -continue Xarelto 20mg qday -venous doppler BLE negative for DVT; CTA not performed due to inability to lie flat #Hyperlipidemia -continue statin #Morbid obesity #Weight loss counseling #Exercise counseling - BMI of 52.3 - Counseled patient on the importance of weight loss, incorporating exercise, and dietary changes (lean meats, fresh fruits and vegetables, and water intake). Patient expresses understanding. - Time: +15 min #Advanced care planning -Disease education conducted, care plan discussed, diagnoses discussed, prognosis discussed, and patient acknowledges understanding with care plan -Time: +30 min History Interval history: No acute events overnight. Patient reports improved dyspnea on exertion. 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 We discussed current care plan and patient agreeable. Hospitalist Physical - Physical exam Narrative exam: GENERAL: Obese male. In no acute distress. HEENT: Normocephalic. Atraumatic. NECK: Supple. CHEST/LUNGS: CTAB on room air HEART/CARDIOVASCULAR: RRR. No murmur, rubs or gallops appreciated. ABDOMEN: +BS. NT/ND. SKIN: hyperpigmented and thickened skin on BLE. NEURO: No focal motor deficit. Follows all commands. MUSCULOSKELETAL: No joint effusion EXTREMITIES: No cyanosis or clubbing. 1+ BLE edema. LLE bandage draining clear fluid. PSYCH: Cooperative. - Constitutional Vitals: Temp Pulse Resp BP Pulse Ox 97.7 F 71 18 104/62 95 07/22/22 12:24 07/22/22 12:24 07/22/22 12:24 07/22/22 12:24 07/22/22 12:24 General appearance: Present: mild distress, well-nourished, obese (Morbidly obese) HEART Score - HEART Score Troponin: Troponin T 0.035 ng/mL (0.00-0.029) H 07/19/22 02:51 Results - Labs CBC & Chem 7: 07/21/22 22:58 07/21/22 22:58 Labs: Laboratory Last Values WBC 7.2 K/mm3 (4.5-11.0) 07/21/22 22:58 RBC 5.69 M/mm3 (3.65-5.03) H 07/21/22 22:58 Hgb 13.9 gm/dl (11.8-15.2) 07/21/22 22:58 Hct 44.1 % (35.5-45.6) 07/21/22 22:58 MCV 78 fl (84-94) L 07/21/22 22:58 MCH 24 pg (28-32) L 07/21/22 22:58 MCHC 31 % (32-34) L 07/21/22 22:58 RDW 18.1 % (13.2-15.2) H 07/21/22 22:58 Plt Count 314 K/mm3 (140-440) 07/21/22 22:58 Lymph % (Auto) 17.6 % (13.4-35.0) 07/19/22 02:51 [place] % (Auto) 11.4 % (0.0-7.3) H 07/19/22 02:51 Eos % (Auto) 0.3 % (0.0-4.3) 07/19/22 02:51 Baso % (Auto) 0.8 % (0.0-1.8) 07/19/22 02:51 Lymph # (Auto) 1.2 K/mm3 (1.2-5.4) 07/19/22 02:51 [place] # (Auto) 0.8 K/mm3 (0.0-0.8) 07/19/22 02:51 Eos # (Auto) 0.0 K/mm3 (0.0-0.4) 07/19/22 02:51 Baso # (Auto) 0.1 K/mm3 (0.0-0.1) 07/19/22 02:51 Seg Neutrophils % 69.9 % (40.0-70.0) 07/19/22 02:51 Seg Neutrophils # 4.8 K/mm3 (1.8-7.7) 07/19/22 02:51 PT 17.5 Sec. (12.2-14.9) H 07/19/22 14:39 INR 1.28 (0.87-1.13) H 07/19/22 14:39 APTT 34.3 Sec. (24.2-36.6) 07/19/22 14:39 D-Dimer 5225.58 ng/mlDDU (0-234) H 07/19/22 08:42 Sodium 140 mmol/L (137-145) 07/21/22 22:58 Potassium 5.0 mmol/L (3.6-5.0) 07/21/22 22:58 Chloride 100.9 mmol/L (98-107) 07/21/22 22:58 Carbon Dioxide 26 mmol/L (22-30) D 07/21/22 22:58 Anion Gap 18 mmol/L 07/21/22 22:58 BUN 42 mg/dL (9-20) H 07/21/22 22:58 Creatinine 1.5 mg/dL (0.8-1.3) H 07/21/22 22:58 Estimated GFR > 60 ml/min 07/21/22 22:58 BUN/Creatinine Ratio 28 % 07/21/22 22:58 Glucose 196 mg/dL (75-100) H 07/21/22 22:58 Calcium 8.7 mg/dL (8.4-10.2) 07/21/22 22:58 Magnesium 2.00 mg/dL (1.7-2.3) 07/19/22 02:51 Total Bilirubin 1.20 mg/dL (0.1-1.2) 07/21/22 22:58 Direct Bilirubin 0.8 mg/dL (0-0.2) H 07/20/22 14:28 Indirect Bilirubin 0.9 mg/dL 07/20/22 14:28 AST 69 units/L (5-40) H 07/21/22 22:58 ALT 183 units/L (7-56) H 07/21/22 22:58 Alkaline Phosphatase 115 units/L (35-129) 07/21/22 22:58 Troponin T 0.035 ng/mL (0.00-0.029) H 07/19/22 02:51 NT-Pro-B Natriuret Pep 6793 pg/mL (0-450) H 07/19/22 02:51 Total Protein 6.9 g/dL (6.3-8.2) 07/21/22 22:58 Albumin 3.5 g/dL (3.9-5) L 07/21/22 22:58 Albumin/Globulin Ratio 1.0 % 07/21/22 22:58 Triglycerides 92 mg/dL (2-149) 07/19/22 02:51 Cholesterol 144 mg/dL (50-199) 07/19/22 02:51 LDL Cholesterol Direct 95 mg/dL (50-130) 07/19/22 02:51 HDL Cholesterol 29 mg/dL (40-59) L 07/19/22 02:51 Cholesterol/HDL Ratio 4.96 % 07/19/22 02:51 TSH 5.070 mlU/mL (0.270-4.200) H 07/19/22 02:51 Plasma/Serum Alcohol < 0.01 % (0-0.07) 07/19/22 02:51 Hepatitis A IgM Ab Non-reactive (NonReactive) 07/20/22 19:03 Hep Bs Antigen Non-reactive (Negative) 07/20/22 19:03 Hep B Core IgM Ab Non-reactive (NonReactive) 07/20/22 19:03 Hepatitis C Antibody Non-reactive (NonReactive) 07/20/22 19:03 An/IV: Voiding Method Urinal Active Medications - Current Medications Current Medications: Generic Name Dose Route Start Last Admin Trade Name Freq PRN Reason Stop Dose Admin Acetaminophen 650 mg 07/19/22 05:03 Acetaminophen 325 Mg Tab PO Q4H PRN Pain MILD(1-3)/Fever >100.5/COLVIN Atorvastatin Calcium 40 mg 07/19/22 22:00 07/21/22 21:21 Atorvastatin 40 Mg Tab PO 40 mg QHS RUDDY Administration Carvedilol 12.5 mg 07/22/22 11:00 07/22/22 10:28 Carvedilol 12.5 Mg Tab PO 12.5 mg BID RUDDY Administration Famotidine 20 mg 07/19/22 10:00 07/22/22 09:21 Famotidine 20 Mg Tab PO 20 mg BID RUDDY Administration Furosemide 40 mg 07/19/22 18:00 07/22/22 05:22 Furosemide 40 Mg/4 Ml Inj IV 40 mg 0600,1800 RUDDY Administration Milrinone Lactate/Dextrose 20 mg in 100 mls @ 19.136 mls/hr 07/20/22 14:00 07/22/22 09:33 Milrinone-D5w 20 Mg/100 Ml IV 07/23/22 13:59 0.375 mcg/kg/min DIRECT RUDDY 19.136 mls/hr Administration Protocol 0.375 MCG/KG/MIN Losartan Potassium 50 mg 07/19/22 10:00 07/22/22 09:20 Losartan 50 Mg Tab PO 50 mg QDAY RUDDY Administration Morphine Sulfate 2 mg 07/19/22 05:03 Morphine 2 Mg/1 Ml Inj IV Q4H PRN Pain, Moderate (4-6) Morphine Sulfate 4 mg 07/19/22 05:03 Morphine 4 Mg/1 Ml Inj IV Q4H PRN Pain , Severe (7-10) Ondansetron HCl 4 mg 07/19/22 05:03 Ondansetron 4 Mg/2 Ml Inj IV Q8H PRN Nausea And Vomiting Rivaroxaban 20 mg 07/19/22 17:00 07/21/22 16:23 Rivaroxaban 20 Mg Tab PO 20 mg QPMDIAB RUDDY Administration Protocol Sodium Chloride 10 ml 07/19/22 10:00 07/22/22 09:20 Sodium Chloride 0.9% 10 Ml Flush Syringe IV 10 ml BID RUDDY Administration Sodium Chloride 10 ml 07/19/22 05:03 Sodium Chloride 0.9% 10 Ml Flush Syringe IV PRN PRN LINE FLUSH Spironolactone 50 mg 07/19/22 10:00 07/22/22 09:20 Spironolactone 50 Mg Tab PO 50 mg QDAY RUDDY Administration
[2022-07-22] MEDS: RIVAROXABAN 20 MG TAB PO SCH (17:08)
[2022-07-23] MEDS: MILRINONE-D5W 20 MG/100 ML 20 MG/100 ML BAG IV SCH ×2 (01:09→12:34)
[2022-07-23] MEDS: FUROSEMIDE 40 MG/4 ML INJ IV SCH ×2 (05:13→17:15)
--- NOTE | 2022-07-23 07:58 | Progress Note ---
Hospitalist Physical - Constitutional Vitals: Temp Pulse Resp BP Pulse Ox 97.3 F L 98 H 18 93/62 93 07/23/22 03:08 07/23/22 03:08 07/23/22 03:08 07/23/22 03:08 07/23/22 03:08 General appearance: Present: mild distress, well-nourished, obese (Morbidly obese) HEART Score - HEART Score Troponin: Troponin T 0.035 ng/mL (0.00-0.029) H 07/19/22 02:51 Results - Labs CBC & Chem 7: 07/21/22 22:58 07/21/22 22:58 Labs: Laboratory Last Values WBC 7.2 K/mm3 (4.5-11.0) 07/21/22 22:58 RBC 5.69 M/mm3 (3.65-5.03) H 07/21/22 22:58 Hgb 13.9 gm/dl (11.8-15.2) 07/21/22 22:58 Hct 44.1 % (35.5-45.6) 07/21/22 22:58 MCV 78 fl (84-94) L 07/21/22 22:58 MCH 24 pg (28-32) L 07/21/22 22:58 MCHC 31 % (32-34) L 07/21/22 22:58 RDW 18.1 % (13.2-15.2) H 07/21/22 22:58 Plt Count 314 K/mm3 (140-440) 07/21/22 22:58 Lymph % (Auto) 17.6 % (13.4-35.0) 07/19/22 02:51 [place] % (Auto) 11.4 % (0.0-7.3) H 07/19/22 02:51 Eos % (Auto) 0.3 % (0.0-4.3) 07/19/22 02:51 Baso % (Auto) 0.8 % (0.0-1.8) 07/19/22 02:51 Lymph # (Auto) 1.2 K/mm3 (1.2-5.4) 07/19/22 02:51 [place] # (Auto) 0.8 K/mm3 (0.0-0.8) 07/19/22 02:51 Eos # (Auto) 0.0 K/mm3 (0.0-0.4) 07/19/22 02:51 Baso # (Auto) 0.1 K/mm3 (0.0-0.1) 07/19/22 02:51 Seg Neutrophils % 69.9 % (40.0-70.0) 07/19/22 02:51 Seg Neutrophils # 4.8 K/mm3 (1.8-7.7) 07/19/22 02:51 PT 17.5 Sec. (12.2-14.9) H 07/19/22 14:39 INR 1.28 (0.87-1.13) H 07/19/22 14:39 APTT 34.3 Sec. (24.2-36.6) 07/19/22 14:39 D-Dimer 5225.58 ng/mlDDU (0-234) H 07/19/22 08:42 Sodium 140 mmol/L (137-145) 07/21/22 22:58 Potassium 5.0 mmol/L (3.6-5.0) 07/21/22 22:58 Chloride 100.9 mmol/L (98-107) 07/21/22 22:58 Carbon Dioxide 26 mmol/L (22-30) D 07/21/22 22:58 Anion Gap 18 mmol/L 07/21/22 22:58 BUN 42 mg/dL (9-20) H 07/21/22 22:58 Creatinine 1.5 mg/dL (0.8-1.3) H 07/21/22 22:58 Estimated GFR > 60 ml/min 07/21/22 22:58 BUN/Creatinine Ratio 28 % 07/21/22 22:58 Glucose 196 mg/dL (75-100) H 07/21/22 22:58 Calcium 8.7 mg/dL (8.4-10.2) 07/21/22 22:58 Magnesium 2.00 mg/dL (1.7-2.3) 07/19/22 02:51 Total Bilirubin 1.20 mg/dL (0.1-1.2) 07/21/22 22:58 Direct Bilirubin 0.8 mg/dL (0-0.2) H 07/20/22 14:28 Indirect Bilirubin 0.9 mg/dL 07/20/22 14:28 AST 69 units/L (5-40) H 07/21/22 22:58 ALT 183 units/L (7-56) H 07/21/22 22:58 Alkaline Phosphatase 115 units/L (35-129) 07/21/22 22:58 Troponin T 0.035 ng/mL (0.00-0.029) H 07/19/22 02:51 NT-Pro-B Natriuret Pep 6793 pg/mL (0-450) H 07/19/22 02:51 Total Protein 6.9 g/dL (6.3-8.2) 07/21/22 22:58 Albumin 3.5 g/dL (3.9-5) L 07/21/22 22:58 Albumin/Globulin Ratio 1.0 % 07/21/22 22:58 Triglycerides 92 mg/dL (2-149) 07/19/22 02:51 Cholesterol 144 mg/dL (50-199) 07/19/22 02:51 LDL Cholesterol Direct 95 mg/dL (50-130) 07/19/22 02:51 HDL Cholesterol 29 mg/dL (40-59) L 07/19/22 02:51 Cholesterol/HDL Ratio 4.96 % 07/19/22 02:51 TSH 5.070 mlU/mL (0.270-4.200) H 07/19/22 02:51 Plasma/Serum Alcohol < 0.01 % (0-0.07) 07/19/22 02:51 Hepatitis A IgM Ab Non-reactive (NonReactive) 07/20/22 19:03 Hep Bs Antigen Non-reactive (Negative) 07/20/22 19:03 Hep B Core IgM Ab Non-reactive (NonReactive) 07/20/22 19:03 Hepatitis C Antibody Non-reactive (NonReactive) 07/20/22 19:03 An/IV: Voiding Method Urinal Active Medications - Current Medications Current Medications: Generic Name Dose Route Start Last Admin Trade Name Freq PRN Reason Stop Dose Admin Acetaminophen 650 mg 07/19/22 05:03 Acetaminophen 325 Mg Tab PO Q4H PRN Pain MILD(1-3)/Fever >100.5/COLVIN Atorvastatin Calcium 40 mg 07/19/22 22:00 07/22/22 21:04 Atorvastatin 40 Mg Tab PO 40 mg QHS RUDDY Administration Carvedilol 12.5 mg 07/22/22 11:00 07/22/22 21:04 Carvedilol 12.5 Mg Tab PO 12.5 mg BID RUDDY Administration Famotidine 20 mg 07/19/22 10:00 07/22/22 21:03 Famotidine 20 Mg Tab PO 20 mg BID RUDDY Administration Furosemide 40 mg 07/19/22 18:00 07/23/22 05:13 Furosemide 40 Mg/4 Ml Inj IV Not Given 0600,1800 [facility] Milrinone Lactate/Dextrose 20 mg in 100 mls @ 19.136 mls/hr 07/20/22 14:00 07/23/22 01:09 Milrinone-D5w 20 Mg/100 Ml IV 07/23/22 13:59 0.375 mcg/kg/min DIRECT RUDDY 19.136 mls/hr Administration Protocol 0.375 MCG/KG/MIN Losartan Potassium 50 mg 07/19/22 10:00 07/22/22 09:20 Losartan 50 Mg Tab PO 50 mg QDAY RUDDY Administration Morphine Sulfate 2 mg 07/19/22 05:03 Morphine 2 Mg/1 Ml Inj IV Q4H PRN Pain, Moderate (4-6) Morphine Sulfate 4 mg 07/19/22 05:03 Morphine 4 Mg/1 Ml Inj IV Q4H PRN Pain , Severe (7-10) Ondansetron HCl 4 mg 07/19/22 05:03 Ondansetron 4 Mg/2 Ml Inj IV Q8H PRN Nausea And Vomiting Rivaroxaban 20 mg 07/19/22 17:00 07/22/22 17:08 Rivaroxaban 20 Mg Tab PO 20 mg QPMDIAB RUDDY Administration Protocol Sodium Chloride 10 ml 07/19/22 10:00 07/22/22 21:04 Sodium Chloride 0.9% 10 Ml Flush Syringe IV 10 ml BID RUDDY Administration Sodium Chloride 10 ml 07/19/22 05:03 Sodium Chloride 0.9% 10 Ml Flush Syringe IV PRN PRN LINE FLUSH Spironolactone 50 mg 07/19/22 10:00 07/22/22 09:20 Spironolactone 50 Mg Tab PO 50 mg QDAY RUDDY Administration
[2022-07-23] MEDS: LOSARTAN 50 MG TAB PO SCH (09:26)
[2022-07-23] MEDS: FAMOTIDINE 20 MG TAB PO SCH ×2 (09:27→21:50)
[2022-07-23] MEDS: carvediloL 12.5 MG TAB PO SCH ×2 (09:27→21:49)
[2022-07-23] MEDS: SPIRONOLACTONE 50 MG TAB PO SCH (09:27)
[2022-07-23 11:13] LABS: BUN/Creatinine Ratio 23; Blood Urea Nitrogen 30 mg/dL (9-20); Calcium 8.9 mg/dL (8.4-10.2); Hemolysis Index 2
--- NOTE | 2022-07-23 12:02 | Progress Note ---
Assessment and Plan - Patient Problems (1) Acute on chronic systolic heart failure Current Visit: Yes Status: Acute Plan to address problem: Patient with a long history of systolic left ventricular failure, presents with acute on chronic CHF exacerbation, likely due to dietary salt indiscretion. Ongoing treatment with intravenous diuretics, intravenous milrinone and other oral guideline directed medical therapy. Heart failure symptoms are resolving, recommend another day of milrinone, and discharge tomorrow on oral guideline directed medical therapy. We recommended LifeVest monitoring as a bridge to eventual ICD, but the patient refuses and wants to obtain a second opinion with his outpatient floor plan adjuster. Subjective Date of service: 07/23/22 Principal diagnosis: Acute on chronic systolic heart failure Interval history: Patient is comfortable, diuresing well on intravenous milrinone. Shortness of breath and edema have resolved. With regards to recommendation for LifeVest monitoring, he refuses this recommendation, wants to follow-up with his outpatient floor plan adjuster for a second opinion. Objective Vital Signs Temp Pulse Resp BP BP Pulse Ox 07/23/22 09:24 103 H 105/66 95 07/23/22 03:08 97.3 F L 98 H 18 93/62 93 07/22/22 23:13 97.4 F L 78 16 110/62 96 07/22/22 20:39 18 94 07/22/22 20:30 97.2 F L 95 H 18 103/60 97 07/22/22 20:00 94 H 07/22/22 15:46 97.7 F 91 H 18 103/62 96 07/22/22 15:00 18 95 07/22/22 12:24 97.7 F 71 18 104/62 95 - Physical Examination General: No Apparent Distress HEENT: Positive: PERRL Neck: Positive: neck supple Cardiac: Positive: Reg Rate and Rhythm Lungs: Positive: Decreased Breath Sounds Neuro: Positive: Grossly Intact Abdomen: Positive: Soft Skin: Positive: Clear Extremities: Present: edema (Minimal) - Labs and Meds Comprehensive Metabolic Panel 07/23/22 Range/Units 10:28 Sodium 133 L (137-145) mmol/L Potassium 4.2 (3.6-5.0) mmol/L Chloride 96.6 L (98-107) mmol/L Carbon Dioxide 25 (22-30) mmol/L BUN 30 H (9-20) mg/dL Creatinine 1.3 (0.8-1.3) mg/dL Glucose 181 H (75-100) mg/dL Calcium 8.9 (8.4-10.2) mg/dL
--- NOTE | 2022-07-23 12:49 | Progress Note ---
Assessment and Plan Assessment and plan: Morbidly obese 46-year-old male patient with significant past medical history of congestive heart failure, DVT on anticoagulation, hypertension was admitted through emergency room with worsening shortness of breath generalized weakness and worsening leg edema. Initial work-up is consistent with acute exacerbation of chronic congestive heart failure. Patient is clinically stable with overall symptoms improving. Anticipated discharge tomorrow. #Acute on chronic systolic congestive heart failure EF 10 to 15%-resolving #Bilateral leg edema-improving -continue coreg, spironolactone, and losartan; lasix 40mg IV BID -Daily weights, Input output monitoring, fluid restriction -continue milrinone drip for 72hrs -patient declined Lifevest and would like a second opinion from his outside Hooking Machine Operator -Cardiology following, assistance appreciated #History of DVT (deep vein thrombosis) #Elevated D-dimer -patient with history of DVT and takes Xarelto outpatient -continue Xarelto 20mg qday -venous doppler BLE negative for DVT; CTA not performed due to inability to lie flat #Hyperlipidemia -continue statin #Morbid obesity #Weight loss counseling #Exercise counseling - BMI of 52.3 - Counseled patient on the importance of weight loss, incorporating exercise, and dietary changes (lean meats, fresh fruits and vegetables, and water intake). Patient expresses understanding. - Time: +15 min #Advanced care planning -Disease education conducted, care plan discussed, diagnoses discussed, prognosis discussed, and patient acknowledges understanding with care plan -Time: +30 min History Interval history: No acute events overnight. Patient sitting in chair at bedside. He denies dyspnea with exertion and feels nearly to his baseline. He declined LifeVest and would like to follow-up with his out side technical program manager for further evaluation. We discussed current care plan and patient was agreeable. Hospitalist Physical - Physical exam Narrative exam: GENERAL: Obese male. In no acute distress. HEENT: Normocephalic. Atraumatic. NECK: Supple. CHEST/LUNGS: CTAB on room air HEART/CARDIOVASCULAR: RRR. No murmur, rubs or gallops appreciated. ABDOMEN: +BS. NT/ND. SKIN: hyperpigmented and thickened skin on BLE. NEURO: No focal motor deficit. Follows all commands. MUSCULOSKELETAL: No joint effusion EXTREMITIES: No cyanosis or clubbing. 1+ BLE edema. LLE bandage draining clear fluid. PSYCH: Cooperative. - Constitutional Vitals: Temp Pulse Resp BP Pulse Ox 97.3 F L 103 H 18 105/66 95 07/23/22 03:08 07/23/22 09:24 07/23/22 03:08 07/23/22 09:24 07/23/22 09:24 General appearance: Present: mild distress, well-nourished, obese (Morbidly obese) HEART Score - HEART Score Troponin: Troponin T 0.035 ng/mL (0.00-0.029) H 07/19/22 02:51 Results - Labs CBC & Chem 7: 07/21/22 22:58 07/23/22 10:28 Labs: Laboratory Last Values WBC 7.2 K/mm3 (4.5-11.0) 07/21/22 22:58 RBC 5.69 M/mm3 (3.65-5.03) H 07/21/22 22:58 Hgb 13.9 gm/dl (11.8-15.2) 07/21/22 22:58 Hct 44.1 % (35.5-45.6) 07/21/22 22:58 MCV 78 fl (84-94) L 07/21/22 22:58 MCH 24 pg (28-32) L 07/21/22 22:58 MCHC 31 % (32-34) L 07/21/22 22:58 RDW 18.1 % (13.2-15.2) H 07/21/22 22:58 Plt Count 314 K/mm3 (140-440) 07/21/22 22:58 Lymph % (Auto) 17.6 % (13.4-35.0) 07/19/22 02:51 [place] % (Auto) 11.4 % (0.0-7.3) H 07/19/22 02:51 Eos % (Auto) 0.3 % (0.0-4.3) 07/19/22 02:51 Baso % (Auto) 0.8 % (0.0-1.8) 07/19/22 02:51 Lymph # (Auto) 1.2 K/mm3 (1.2-5.4) 07/19/22 02:51 [place] # (Auto) 0.8 K/mm3 (0.0-0.8) 07/19/22 02:51 Eos # (Auto) 0.0 K/mm3 (0.0-0.4) 07/19/22 02:51 Baso # (Auto) 0.1 K/mm3 (0.0-0.1) 07/19/22 02:51 Seg Neutrophils % 69.9 % (40.0-70.0) 07/19/22 02:51 Seg Neutrophils # 4.8 K/mm3 (1.8-7.7) 07/19/22 02:51 PT 17.5 Sec. (12.2-14.9) H 07/19/22 14:39 INR 1.28 (0.87-1.13) H 07/19/22 14:39 APTT 34.3 Sec. (24.2-36.6) 07/19/22 14:39 D-Dimer 5225.58 ng/mlDDU (0-234) H 07/19/22 08:42 Sodium 133 mmol/L (137-145) L 07/23/22 10:28 Potassium 4.2 mmol/L (3.6-5.0) 07/23/22 10:28 Chloride 96.6 mmol/L (98-107) L 07/23/22 10:28 Carbon Dioxide 25 mmol/L (22-30) 07/23/22 10:28 Anion Gap 16 mmol/L 07/23/22 10:28 BUN 30 mg/dL (9-20) H 07/23/22 10:28 Creatinine 1.3 mg/dL (0.8-1.3) 07/23/22 10:28 Estimated GFR > 60 ml/min 07/23/22 10:28 BUN/Creatinine Ratio 23 % 07/23/22 10:28 Glucose 181 mg/dL (75-100) H 07/23/22 10:28 Calcium 8.9 mg/dL (8.4-10.2) 07/23/22 10:28 Magnesium 2.00 mg/dL (1.7-2.3) 07/19/22 02:51 Total Bilirubin 1.20 mg/dL (0.1-1.2) 07/21/22 22:58 Direct Bilirubin 0.8 mg/dL (0-0.2) H 07/20/22 14:28 Indirect Bilirubin 0.9 mg/dL 07/20/22 14:28 AST 69 units/L (5-40) H 07/21/22 22:58 ALT 183 units/L (7-56) H 07/21/22 22:58 Alkaline Phosphatase 115 units/L (35-129) 07/21/22 22:58 Troponin T 0.035 ng/mL (0.00-0.029) H 07/19/22 02:51 NT-Pro-B Natriuret Pep 6793 pg/mL (0-450) H 07/19/22 02:51 Total Protein 6.9 g/dL (6.3-8.2) 07/21/22 22:58 Albumin 3.5 g/dL (3.9-5) L 07/21/22 22:58 Albumin/Globulin Ratio 1.0 % 07/21/22 22:58 Triglycerides 92 mg/dL (2-149) 07/19/22 02:51 Cholesterol 144 mg/dL (50-199) 07/19/22 02:51 LDL Cholesterol Direct 95 mg/dL (50-130) 07/19/22 02:51 HDL Cholesterol 29 mg/dL (40-59) L 07/19/22 02:51 Cholesterol/HDL Ratio 4.96 % 07/19/22 02:51 TSH 5.070 mlU/mL (0.270-4.200) H 07/19/22 02:51 Plasma/Serum Alcohol < 0.01 % (0-0.07) 07/19/22 02:51 Hepatitis A IgM Ab Non-reactive (NonReactive) 07/20/22 19:03 Hep Bs Antigen Non-reactive (Negative) 07/20/22 19:03 Hep B Core IgM Ab Non-reactive (NonReactive) 07/20/22 19:03 Hepatitis C Antibody Non-reactive (NonReactive) 07/20/22 19:03 An/IV: Voiding Method Urinal Active Medications - Current Medications Current Medications: Generic Name Dose Route Start Last Admin Trade Name Freq PRN Reason Stop Dose Admin Acetaminophen 650 mg 07/19/22 05:03 Acetaminophen 325 Mg Tab PO Q4H PRN Pain MILD(1-3)/Fever >100.5/COLVIN Atorvastatin Calcium 40 mg 07/19/22 22:00 07/22/22 21:04 Atorvastatin 40 Mg Tab PO 40 mg QHS RUDDY Administration Carvedilol 12.5 mg 07/22/22 11:00 07/23/22 09:27 Carvedilol 12.5 Mg Tab PO 12.5 mg BID RUDDY Administration Famotidine 20 mg 07/19/22 10:00 07/23/22 09:27 Famotidine 20 Mg Tab PO 20 mg BID RUDDY Administration Furosemide 40 mg 07/19/22 18:00 07/23/22 05:13 Furosemide 40 Mg/4 Ml Inj IV Not Given 0600,1800 RUDDY Milrinone Lactate/Dextrose 20 mg in 100 mls @ 19.136 mls/hr 07/20/22 14:00 07/23/22 12:34 Milrinone-D5w 20 Mg/100 Ml IV 07/23/22 13:59 0.375 mcg/kg/min DIRECT RUDDY 19.136 mls/hr Administration Protocol 0.375 MCG/KG/MIN Losartan Potassium 50 mg 07/19/22 10:00 07/23/22 09:26 Losartan 50 Mg Tab PO 50 mg QDAY RDUDY Administration Morphine Sulfate 2 mg 07/19/22 05:03 Morphine 2 Mg/1 Ml Inj IV Q4H PRN Pain, Moderate (4-6) Morphine Sulfate 4 mg 07/19/22 05:03 Morphine 4 Mg/1 Ml Inj IV Q4H PRN Pain , Severe (7-10) Ondansetron HCl 4 mg 07/19/22 05:03 Ondansetron 4 Mg/2 Ml Inj IV Q8H PRN Nausea And Vomiting Rivaroxaban 20 mg 07/19/22 17:00 07/22/22 17:08 Rivaroxaban 20 Mg Tab PO 20 mg [id number] RUDDY Administration Protocol Sodium Chloride 10 ml 07/19/22 10:00 07/23/22 09:27 Sodium Chloride 0.9% 10 Ml Flush Syringe IV 10 ml BID RUDDY Administration Sodium Chloride 10 ml 07/19/22 05:03 Sodium Chloride 0.9% 10 Ml Flush Syringe IV PRN PRN LINE FLUSH Spironolactone 50 mg 07/19/22 10:00 07/23/22 09:27 Spironolactone 50 Mg Tab PO 50 mg QDAY RUDDY Administration
[2022-07-23] MEDS: RIVAROXABAN 20 MG TAB PO SCH (17:29)
[2022-07-24 05:55] LABS: Alanine Aminotransferase 107 units/L (7-56); Albumin 3.6 g/dL (3.9-5); BUN/Creatinine Ratio 24; Blood Urea Nitrogen 29 mg/dL (9-20); Calcium 8.6 mg/dL (8.4-10.2); Hemolysis Index 10
[2022-07-24] MEDS: FUROSEMIDE 40 MG/4 ML INJ IV SCH (05:59)
--- NOTE | 2022-07-24 08:40 | Discharge Summary ---
Providers - Providers Date of Admission: 07/20/22 15:35 Attending physician: COLE CHAPA MD 07/20/22 11:15 Consult to Physician [CONS] Routine Comment: Consulting Provider: CARI GALDAMEZ Physician Instructions: Reason For Exam: Acute on chronic systolic CHF/cardiomyopathy 07/23/22 07:09 Consult to Wound/ET Nurse [CONS] Routine Reason For Exam: wound eval Primary care physician: CAMPBELL HARVEY Hospitalization Condition: Good Disposition: 30 STILL A PATIENT Exam - Constitutional Vitals: Temp Pulse Resp BP Pulse Ox 97.3 F L 103 H 16 120/91 96 07/24/22 03:55 07/24/22 03:55 07/24/22 03:55 07/24/22 03:55 07/24/22 03:55 Plan Care Plan Goals: 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 You are at high risk of sudden due to how weak your heart is so it is important that you schedule an appointment within the next week. Please take all medications as they are prescribed. You may your fluid intake (including fluid in food) to less than 1.5 L daily. Also limit your salt intake to less than 2000 mg daily to prevent further fluid retention. Follow up with: CAMPBELL HARVEY MD [Primary Care Provider] - 3-5 Days Prescriptions: AtorvaSTATin [Lipitor] 40 mg PO QHS 90 Days #90 tablet Spironolactone [Aldactone] 50 mg PO QDAY 90 Days #90 tab carvediloL [Coreg] 12.5 mg PO BID 90 Days #180 tablet Losartan [Cozaar] 50 mg PO QDAY 90 Days #90 tab Furosemide [Lasix] 40 mg PO BID 90 Days #180 tab Rivaroxaban [Xarelto] 20 mg PO [id number] 90 Days #90 tablet
[2022-07-24 09:53] VITALS: BP 127/90
--- NOTE | 2022-07-24 10:28 | Progress Note ---
Assessment and Plan - Patient Problems (1) Acute on chronic systolic heart failure Current Visit: Yes Status: Acute Plan to address problem: Patient with a long history of systolic left ventricular failure, presents with acute on chronic CHF exacerbation, likely due to dietary salt indiscretion. Heart failure symptoms are resolved, stable for cardiac discharge on oral guideline directed medical therapy. 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 Subjective Date of service: 07/24/22 Principal diagnosis: Acute on chronic systolic heart failure Interval history: Patient is comfortable, no new cardiac complaints, shortness of breath has resolved, and edema is resolved. Objective Vital Signs Temp Pulse Resp BP Pulse Ox 07/24/22 08:39 98.0 F 76 20 127/90 97 07/24/22 03:55 97.3 F L 103 H 16 120/91 96 07/23/22 23:07 97.5 F L 98 H 18 106/76 97 07/23/22 20:55 20 95 07/23/22 20:49 96 H 07/23/22 19:15 97.3 F L 96 H 18 96/56 97 07/23/22 16:54 98.3 F 92 H 18 96/58 96 07/23/22 15:00 21 95 - Physical Examination General: No Apparent Distress HEENT: Positive: PERRL Neck: Positive: neck supple Cardiac: Positive: Reg Rate and Rhythm Lungs: Positive: Decreased Breath Sounds Neuro: Positive: Grossly Intact Abdomen: Positive: Soft Skin: Positive: Clear Extremities: Present: edema (Minimal) - Labs and Meds Cardiac Enzymes 07/24/22 Range/Units 05:02 AST 36 (5-40) units/L Comprehensive Metabolic Panel 07/23/22 07/24/22 Range/Units 10:28 05:02 Sodium 133 L 136 L (137-145) mmol/L Potassium 4.2 4.7 (3.6-5.0) mmol/L Chloride 96.6 L 99.8 (98-107) mmol/L Carbon Dioxide 25 23 (22-30) mmol/L BUN 30 H 29 H (9-20) mg/dL Creatinine 1.3 1.2 (0.8-1.3) mg/dL Glucose 181 H 163 H (75-100) mg/dL Calcium 8.9 8.6 (8.4-10.2) mg/dL AST 36 (5-40) units/L ALT 107 H (7-56) units/L Alkaline Phosphatase 100 (35-129) units/L Total Protein 7.1 (6.3-8.2) g/dL Albumin 3.6 L (3.9-5) g/dL
[2022-07-24] MEDS: carvediloL 12.5 MG TAB PO SCH (10:33)
[2022-07-24] MEDS: SPIRONOLACTONE 50 MG TAB PO SCH (10:33)
[2022-07-24] MEDS: LOSARTAN 50 MG TAB PO SCH (10:33)
[2022-07-24] MEDS: FAMOTIDINE 20 MG TAB PO SCH (10:33)
== END 2022-07-24 17:00 | disposition home or self-care (01) | DRG 291 ==
LOC: ED 01:40 → 4A 05:03 → OBSVTOIN 07-20 15:35
PROVIDERS: ADMIT Hospitalist; ATTEND Student in an Organized Health Care Education/Training Program
DX: I11.0 Hypertensive heart disease with heart failure (principal); I50.23 Acute on chronic systolic (congestive) heart failure; Z68.43 Body mass index [BMI] 50.0-59.9, adult; E66.01 Morbid (severe) obesity due to excess calories; E78.5 Hyperlipidemia, unspecified; Z71.3 Dietary counseling and surveillance; Z83.3 Family history of diabetes mellitus; Z79.899 Other long term (current) drug therapy
CPT/HCPCS: 36415; 71045; 80048; 80053; 80061; 80074; 80076; 80320; 82565; 83735; 83880; 84132; 84443; 84484; 85025; 85027; 85379; 85610; 85730; 93005; 93306; 93970; G0378; C8929; G0480; J1940; J2260